=== PATIENT | female | born 1965 | race Caucasian/White ===

== ENCOUNTER 2019-03-11 22:54 | Emergency (ER) | payer BC ==
[~2019-03-11] VITALS: Ht 154.9 cm; Wt 62.4 kg
[2019-03-12 00:56] VITALS: BP 130/61
== END 2019-03-12 00:56 | disposition home or self-care (01) ==
LOC: ED 22:54
DX: G43.911 Migraine, unspecified, intractable, with status migrainosus (principal); F32.9 Major depressive disorder, single episode, unspecified; Z88.2 Allergy status to sulfonamides; Z91.030 Bee allergy status; Z88.8 Allergy status to other drugs, medicaments and biological substances
CPT/HCPCS: J2765; J3010; J7030

== ENCOUNTER 2019-06-27 06:19 | Emergency (ER) | payer BC ==
[~2019-06-27] VITALS: Ht 154.9 cm; Wt 65.3 kg
[2019-06-27 06:31] VITALS: Ht 154.9 cm; Wt 65.3 kg
[2019-06-27 08:43] VITALS: BP 133/78
== END 2019-06-27 08:43 | disposition home or self-care (01) ==
LOC: ED 06:19
DX: G43.909 Migraine, unspecified, not intractable, without status migrainosus (principal); R11.2 Nausea with vomiting, unspecified; Z88.2 Allergy status to sulfonamides; Z91.030 Bee allergy status
CPT/HCPCS: J2765; J3010; J7030